=== PATIENT | female | born 1980 | race Caucasian/White ===

== ENCOUNTER 2019-04-04 14:48 | Emergency (ER) | payer OTHER ==
[~2019-04-04] VITALS: Ht 162.6 cm; Wt 81.7 kg
[2019-04-04] MEDS ORDERED: PRAZ1 (15:37)
[2019-04-04] MEDS ORDERED: Dicyclomine HCl10 MG (15:37)
[2019-04-04] MEDS ORDERED: TRAZ100 (15:37)
[2019-04-04] MEDS ORDERED: METO25 (15:38)
[2019-04-04] MEDS ORDERED: MELA3 (15:38)
[2019-04-04] MEDS ORDERED: LEVSOD25 (15:38)
[2019-04-04] MEDS ORDERED: LAMO25 (15:38)
[2019-04-04] MEDS ORDERED: OMEPRAZOLE20 MG (15:38)
[2019-04-04] MEDS ORDERED: TOPI15C (15:38)
[2019-04-04] MEDS ORDERED: Vitamin D400 UNI2 (15:39)
[2019-04-04] MEDS ORDERED: PROM12.5S (15:39)
[2019-04-04] MEDS ORDERED: ZOLM2.5 (15:39)
[2019-04-04] MEDS ORDERED: FEMYNOR 28 TAB1 EACH (15:39)
[2019-04-04] MEDS ORDERED: HYDR1TAB94 PO (16:04)
== END 2019-04-04 16:16 | disposition home or self-care (01) ==
LOC: ER 14:48
DX: S60.222A Contusion of left hand, initial encounter (principal); S80.01XA Contusion of right knee, initial encounter; V89.2XXA Person injured in unspecified motor-vehicle accident, traffic, initial encounter
CPT/HCPCS: 71046; 72100; 73130; 73562-RT; 99284-25

== ENCOUNTER 2019-07-29 02:04 | Emergency (ER) | payer OTHER ==
[~2019-07-29] VITALS: Ht 162.6 cm; Wt 80.7 kg
[~2019-07-29 02:04] MED LIST: Dicyclomine HCl10 MG; FEMYNOR 28 TAB1 EACH; HYDR1TAB94 PO; LAMO25; LEVSOD25; MELA3; METO25; OMEPRAZOLE20 MG; PRAZ1; PROM12.5S; TOPI15C; TRAZ100; Vitamin D400 UNI2; ZOLM2.5
[2019-07-29] MEDS ORDERED: Augmentin 875-1 EACH PO (02:48)
== END 2019-07-29 03:10 | disposition home or self-care (01) ==
LOC: ER 02:04
DX: H66.43 Suppurative otitis media, unspecified, bilateral (principal); Z79.899 Other long term (current) drug therapy
CPT/HCPCS: 96372; 99282-25; J1885

== ENCOUNTER 2020-11-26 10:33 | Day surgery (SDC) | payer OTHER ==
[~2020-11-26] VITALS: Ht 162.6 cm; Wt 105.2 kg
[~2020-11-26 10:33] MED LIST changes: +Augmentin 875-1 EACH PO; +EUTHYROX25 MCG PO; +LAMO25 PO; +METO25 PO; +OMEP20ER PO; +PRAZ5 PO; +SULTRIDS PO; +Trazodone HCl300 MG PO; +VENL150ER PO; +VITAMIN D325 MC3 PO
--- NOTE | 2020-11-26 11:05 | NUR ---
11/26/20 1105 Danielito Barr CHARTED BY JOAQUIN BARR RN
--- NOTE | 2020-11-26 12:26 | NUR ---
11/26/20 1226 Ivan Cee [id number] 50MLS USED PER ORDER BY DR REAGAN FOR CHOLANGIOGRAM.
--- NOTE | 2020-11-26 14:17 | NUR ---
11/26/20 1417 Ariadna Ríos PT STATES PAIN IS TOLERABLE AT 4/10. 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
== END 2020-11-26 14:13 | disposition home or self-care (01) ==
LOC: ORSCSDS 10:33
PROVIDERS: Surgery
PROC: 0FT44ZZ Resection of Gallbladder, Percutaneous Endoscopic Approach (ICD-10-PCS; principal; 2020-11-26 12:00)
PROC: BF031ZZ Plain Radiography of Gallbladder and Bile Ducts using Low Osmolar Contrast (ICD-10-PCS; principal; 2020-11-26 12:00)
DX: K80.10 Calculus of gallbladder with chronic cholecystitis without obstruction (principal); G47.33 Obstructive sleep apnea (adult) (pediatric); E66.01 Morbid (severe) obesity due to excess calories; Z68.39 Body mass index [BMI] 39.0-39.9, adult; E03.9 Hypothyroidism, unspecified; Z79.899 Other long term (current) drug therapy; I10 Essential (primary) hypertension
CPT/HCPCS: 74300; 88304; C1729; J0330; J0690; J1885; J2250; J2405; J2710; J3010; J7120

== ENCOUNTER 2021-06-16 20:27 | Emergency (ER) | payer OTHER ==
[~2021-06-16] VITALS: Ht 162.6 cm; Wt 95.2 kg
[2021-06-16 21:19] LABS: BASOPHILS ABSOLUTE AUTO 0.02 K/mm3 (0.00-0.23); BASOPHILS PERCENT AUTO 0 % (0-2); EOSINOPHILS ABSOLUTE AUTO 0.43 K/mm3 (0.00-0.68); EOSINOPHILS PERCENT AUTO 6 % (0-6); Hematocrit 36.4 % (33.0-51.0); Hemoglobin 11.3 g/dL (11.5-16.0); IMMATURE GRAN ABSOLUTE AUTO 0.01 K/mm3 (0.00-0.10); IMMATURE GRAN PERCENT AUTO 0 % (0-1); LYMPHOCYTES ABSOLUTE AUTO 3.28 K/mm3 (0.84-5.20); LYMPHOCYTES PERCENT AUTO 49 % (21-46); MONOCYTES ABSOLUTE AUTO 0.57 K/mm3 (0.16-1.47); MONOCYTES PERCENT AUTO 8 % (4-13); Mean Corpuscular HGB 25.6 pg (26.0-34.0); Mean Corpuscular Volume 83 fL (80-100); Mean Platelet Volume 9.6 fL (9.1-12.4); NEUTROPHILS ABSOLUTE AUTO 2.44 K/mm3 (1.96-9.15); NEUTROPHILS PERCENT AUTO 36 % (41-73); Platelet Count 281 K/mm3 (150-400); RDW Coefficient Variation 15.7 % (11.7-14.2); RDW Standard Deviation 47.5 fL (35.1-46.3); Red Blood Cell Count 4.41 M/mm3 (3.80-5.20); White Blood Cell Count 6.75 K/mm3 (4.00-11.30)
[2021-06-16 21:40] LABS: Alanine Aminotransfer (ALT/SGP 26 U/L (12-78); Albumin, Blood 3.5 g/dL (3.4-5.0); Albumin/Globulin Ratio 0.8 (0.8-1.8); Alk Phos 79 U/L (50-136); Anion Gap 6 mmol/L (6-16); Aspartate Aminotrans (AST/SGOT 15 U/L (12-37); Bilirubin, Total 0.2 mg/dL (0.1-1.0); Blood Urea Nitrogen 13 mg/dL (8-24); Bun/Creatinine Ratio 15.3 (12.0-20.0); CO2, Blood 27 mmol/L (21-32); Calcium, Blood 8.7 mg/dL (8.5-10.1); Chloride, Blood 108 mmol/L (98-108); Creatinine, Blood 0.85 mg/dL (0.40-1.00); Globulin, Blood 4.2 g/dL (2.2-4.0); Glomerular Filtration Rate >60 (60-); Glucose, Blood 83 mg/dL (70-99); Potassium, Blood 3.6 mmol/L (3.5-5.5); Sodium, Blood 141 mmol/L (136-145); Total Protein, Blood 7.7 g/dL (6.4-8.2); Troponin I <0.015 ng/mL (0.000-0.040)
[2021-06-16] MEDS ORDERED: IBUP600 PO (22:27)
== END 2021-06-16 22:30 | disposition home or self-care (01) ==
LOC: ER 20:27
PROVIDERS: Physician Assistant
DX: U07.1 COVID-19 (principal); Z88.8 Allergy status to other drugs, medicaments and biological substances; Z79.899 Other long term (current) drug therapy
CPT/HCPCS: 36415; 80053; 84484; 85025; 93005; 93010; 99284-25

== ENCOUNTER 2022-07-22 08:45 | Day surgery (SDC) | payer OTHER ==
[~2022-07-22] VITALS: Ht 162.6 cm; Wt 87.5 kg
[~2022-07-22 08:45] MED LIST changes: +IBUP600 PO
--- NOTE | 2022-07-22 16:00 | NUR ---
ARRIVED FROM PACU VIA HILARIO, ANGELY, A&OX4, DENIES ANY NEED FOR PAIN MEDS AT THIS TIME, DENIES ANY NAUSEA, ORIENTED TO ROOM AND CALL LIGHT, REPORT TO SANCHEZ OLIVER TO ASSUME CARE OF PT.
--- NOTE | 2022-07-22 19:33 | NUR ---
SHIFT SUMMARY PATIENT NEW ADMIT TO UNIT THIS AFTERNOON FROM PACU POD 0 FOR TOTAL ARLETTE LAP HYSTER. ASSUMED CARE AT 1700 FROM ERIKA GROSS RN. PATIENT ALERT AND ORIENTED IN BED. TOLERATING SIPS OF WATER, JELLO, AND CRACKERS. REPORTS PAIN 6/10, MEDICATED WITH PO PERCOCET. REPORTS MILD NAUSEA BUT DELINCED NAUSEA MEDICATION. ABD LAP SITES X4 C/D/I. PERIPAD C/D/I. RIVAS PATENT AND DRAINING CLEAR YELLOW URINE. SPOUSE AND TWO CHILDREN PRESENT AND ATTENTIVE. REPROT GIVEN TO SIDE STITCHING MACHINE OPERATOR RN.
[2022-07-23 04:07] LABS: BASOPHILS ABSOLUTE AUTO 0.02 K/mm3 (0.00-0.23); BASOPHILS PERCENT AUTO 0 % (0-2); EOSINOPHILS ABSOLUTE AUTO 0.01 K/mm3 (0.00-0.68); EOSINOPHILS PERCENT AUTO 0 % (0-6); Hematocrit 34.8 % (33.0-51.0); Hemoglobin 11.8 g/dL (11.5-16.0); IMMATURE GRAN ABSOLUTE AUTO 0.07 K/mm3 (0.00-0.10); IMMATURE GRAN PERCENT AUTO 0 % (0-1); LYMPHOCYTES ABSOLUTE AUTO 1.75 K/mm3 (0.84-5.20); LYMPHOCYTES PERCENT AUTO 11 % (21-46); MONOCYTES ABSOLUTE AUTO 0.69 K/mm3 (0.16-1.47); MONOCYTES PERCENT AUTO 4 % (4-13); Mean Corpuscular HGB 29.2 pg (26.0-34.0); Mean Corpuscular HGB Conc 33.9 g/dL (31.5-36.5); Mean Corpuscular Volume 86 fL (80-100); Mean Platelet Volume 9.7 fL (9.1-12.4); NEUTROPHILS ABSOLUTE AUTO 13.48 K/mm3 (1.96-9.15); NEUTROPHILS PERCENT AUTO 84 % (41-73); Platelet Count 238 K/mm3 (150-400); RDW Coefficient Variation 13.5 % (11.7-14.2); RDW Standard Deviation 42.6 fL (35.1-46.3); Red Blood Cell Count 4.04 M/mm3 (3.80-5.20); White Blood Cell Count 16.02 K/mm3 (4.00-11.30)
--- NOTE | 2022-07-23 04:10 | NUR ---
SHIFT SUMMARY POD1 LAP TOTAL HYSTER. 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 PATIENT IS TOELRATING PO INTAKE, DENIES N/V. SCANT SPOTTING ON JN PAD. RIVAS DC'D AND PATIENT IS VOIDING IN TOILET. PAITENT MEDICATED FOR PAIN PRN W/ RELIEF, SLEEPS T/O THE SHIFT AND AMBULATES W/ SBA. VSS, SCD'S IN PLACE. CALL LIGHT IN REACH. WILL REPORT TO DAY RN.
[2022-07-23] MEDS ORDERED: ESTR2 PO (11:19)
[2022-07-23] MEDS ORDERED: IBUP400 PO (11:20)
[2022-07-23] MEDS ORDERED: Percocet 5-3251 EACH PO (11:24)
[2022-07-23] MEDS ORDERED: PROM25 PO (11:27)
[2022-07-23] MEDS ORDERED: SIME80CH PO (11:28)
--- NOTE | 2022-07-23 11:40 | NUR ---
DISCHARGE NOTE: PATIENT WAS EDUCATED ON DISCHARGE INSTRUCTIONS. SHE VERBALIZED UNDERSTANDING OF INSTRUCTIONS WITH NO FURTHER QUESTIONS AT THIS TIME. PAIN IS MANAGED WITH ORAL PAIN MEDICATIONS. HER 4 ABD LAP SITES WITH DERMABOND ARE C/D/I. SHE IS TOLERATING PO INTAKE AND IS VOIDING. HER JN PAD HAS A SCANT AMOUNT OF BLOOD ON IT. PATIENT HAS ABD BINDER IN PLACE. PATIENT IS DRESSED AND HAS ALL PERSONAL ITEMS IN THE ROOM GATHERED. SHE IS BEING WHEELCHAIRED OUT TO HER SPOUSES CAR TO BE TAKEN HOME.
== END 2022-07-23 11:46 | disposition home or self-care (01) ==
LOC: ORSCMMR 08:45 → ORD 12:15 → ORSCMMR 12:45 → ORD 13:30 → SURS 15:20 → ORSCMMR 07-23 11:46
PROVIDERS: Obstetrics & Gynecology
PROC: 0UT9FZZ Resection of Uterus, Via Natural or Artificial Opening With Percutaneous Endoscopic Assistance (ICD-10-PCS; principal; 2022-07-22 10:00)
PROC: 8E0W4CZ Robotic Assisted Procedure of Trunk Region, Percutaneous Endoscopic Approach (ICD-10-PCS; principal; 2022-07-22 10:00)
PROC: 0U5F4ZZ Destruction of Cul-de-sac, Percutaneous Endoscopic Approach (ICD-10-PCS; principal; 2022-07-22 10:00)
PROC: 0UT2FZZ Resection of Bilateral Ovaries, Via Natural or Artificial Opening With Percutaneous Endoscopic Assistance (ICD-10-PCS; principal; 2022-07-22 10:00)
PROC: 0UT7FZZ Resection of Bilateral Fallopian Tubes, Via Natural or Artificial Opening With Percutaneous Endoscopic Assistance (ICD-10-PCS; principal; 2022-07-22 10:00)
DX: N92.0 Excessive and frequent menstruation with regular cycle (principal); N80.9 Endometriosis, unspecified; N94.6 Dysmenorrhea, unspecified; N94.10 Unspecified dyspareunia; R10.2 Pelvic and perineal pain; N80.03 Adenomyosis of the uterus; N83.292 Other ovarian cyst, left side; N83.291 Other ovarian cyst, right side; Z87.891 Personal history of nicotine dependence; G47.33 Obstructive sleep apnea (adult) (pediatric); E03.9 Hypothyroidism, unspecified; F41.8 Other specified anxiety disorders; Z79.899 Other long term (current) drug therapy
CPT/HCPCS: 58571; 58662; S2900; 36415; 85025; 86850; 86900; 86901; 88300; 88305; 88307; A9270; J0690; J1100; J1885; J2250; J2405; J2704; J3010; J7120

== ENCOUNTER 2022-08-27 20:51 | Emergency (ER) | payer OTHER ==
[~2022-08-27] VITALS: Ht 162.6 cm; Wt 86.2 kg
[~2022-08-27 20:51] MED LIST changes: +ESTR2 PO; +IBUP400 PO; +PROM25 PO; +Percocet 5-3251 EACH PO; +SIME80CH PO
[2022-08-27] MEDS ORDERED: Seroquel Xr50 MG PO (20:59)
[2022-08-27] MEDS ORDERED: PRED20 PO (23:28)
[2022-08-27] MEDS ORDERED: HYDHCL25 PO (23:28)
== END 2022-08-27 23:57 | disposition home or self-care (01) ==
LOC: ER 20:51
DX: L29.9 Pruritus, unspecified (principal); Z88.8 Allergy status to other drugs, medicaments and biological substances; Z79.890 Hormone replacement therapy; Z79.899 Other long term (current) drug therapy
CPT/HCPCS: 99282; A9270; J7512

== ENCOUNTER 2023-02-10 08:15 | Day surgery (SDC) | payer OTHER ==
[~2023-02-10 08:15] MED LIST changes: +HYDHCL25 PO; +PRED20 PO; +Seroquel Xr50 MG PO
== END 2023-02-10 22:53 | disposition home or self-care (01) ==
LOC: CT 08:15
DX: R07.9 Chest pain, unspecified (principal); K76.0 Fatty (change of) liver, not elsewhere classified
CPT/HCPCS: 75574; 93306; Q9967

== ENCOUNTER 2023-02-12 19:24 | Emergency (ER) | payer OTHER ==
[~2023-02-12] VITALS: Ht 162.6 cm; Wt 104.3 kg
[2023-02-12 19:49] VITALS: BP 154/108
[2023-02-12] MEDS ORDERED: AMOCLA875 PO (19:55)
== END 2023-02-12 20:13 | disposition home or self-care (01) ==
LOC: ER 19:24
DX: K08.89 Other specified disorders of teeth and supporting structures (principal); S02.5XXA Fracture of tooth (traumatic), initial encounter for closed fracture; X58.XXXA Exposure to other specified factors, initial encounter; Z88.8 Allergy status to other drugs, medicaments and biological substances; Z79.890 Hormone replacement therapy; Z79.899 Other long term (current) drug therapy; Z79.52 Long term (current) use of systemic steroids
CPT/HCPCS: 64400; 99282-25

== ENCOUNTER 2023-04-27 19:22 | Emergency (ER) | payer OTHER ==
[~2023-04-27] VITALS: Ht 162.6 cm; Wt 104.3 kg
[~2023-04-27 19:22] MED LIST changes: +AMOCLA875 PO
[2023-04-27 19:25] VITALS: BP 143/93
== END 2023-04-27 21:16 | disposition home or self-care (01) ==
LOC: ER 19:22
DX: S90.32XA Contusion of left foot, initial encounter (principal); W20.8XXA Other cause of strike by thrown, projected or falling object, initial encounter; E03.9 Hypothyroidism, unspecified; F32.A Depression, unspecified; F41.9 Anxiety disorder, unspecified; Z88.8 Allergy status to other drugs, medicaments and biological substances; Z79.899 Other long term (current) drug therapy
CPT/HCPCS: 73630; 99283-25; A9270

== ENCOUNTER 2023-06-07 19:42 | Emergency (ER) | payer OTHER ==
[~2023-06-07] VITALS: Ht 162.6 cm; Wt 102.1 kg
[2023-06-07 19:53] VITALS: BP 130/88
== END 2023-06-07 20:53 | disposition home or self-care (01) ==
LOC: ER 19:42
DX: M25.561 Pain in right knee (principal); E03.9 Hypothyroidism, unspecified; Z88.8 Allergy status to other drugs, medicaments and biological substances; Z79.899 Other long term (current) drug therapy; Z79.52 Long term (current) use of systemic steroids; Z79.890 Hormone replacement therapy
CPT/HCPCS: 99283